=== PATIENT | female | born 1990 | race Two or more races ===

== ENCOUNTER 2021-10-27 21:11 | Outpatient (CLI) | payer OTHER ==
[2021-10-27] MEDS ORDERED: PRENATAL TABLE1 EAC1 PO (21:40)
== END 2021-10-28 11:14 | disposition home or self-care (01) ==
LOC: OBS/DEL 21:11
PROVIDERS: ATTEND Obstetrics & Gynecology
DX: O26.852 Spotting complicating pregnancy, second trimester (principal); Z3A.20 20 weeks gestation of pregnancy

== ENCOUNTER 2023-11-30 23:24 | Emergency (ER) | payer OTHER ==
[~2023-11-30] VITALS: Ht 152.4 cm; Wt 81.6 kg
[~2023-11-30 23:24] MED LIST: PRENATAL TABLE1 EAC1 PO
[2023-12-01 01:58] LABS: HEMATOCRIT 37.1 % (36.0-45.00); HEMOGLOBIN 12.9 g/dL (12.0-15.00); MEAN CELL VOLUME 85.6 fL (80.00-100.00); MEAN CORPUSCULAR HEMOGLOBIN 29.7 pg (27.00-32.0); MEAN CORPUSCULAR HGB CONC 34.7 g/dl (32.0-36.0); PLATELET COUNT 197 K/uL (150-450); RED BLOOD COUNT 4.34 M/uL (4.00-6.00); RED CELL DISTRIBUTION WIDTH 13.5 % (11.5-14.5)
[2023-12-01] MEDS ORDERED: DICLOFENAC SODI75 MG PO (02:36)
[2023-12-01] MEDS ORDERED: BUTALB-ACETAMI1 EAC2 PO (02:36)
== END 2023-12-01 02:44 | disposition home or self-care (01) ==
LOC: ER 23:24
PROVIDERS: General Practice
DX: R51.9 Headache, unspecified (principal); Z20.822 Contact with and (suspected) exposure to COVID-19